=== PATIENT | male | born 1990 | race Caucasian/White ===

== ENCOUNTER 2017-06-01 01:19 | Emergency (ER) | payer OTHER ==
[2017-06-01 01:27] VITALS: BP 139/55
--- NOTE | 2017-06-01 01:39 | ER Document Report ---
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 He is complaining of abrasions over the second through fifth PIP joints and tenderness and swelling distal fourth and fifth metacarpals.No previous fx. [place]. 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 Associated Symptoms: None Exacerbated by: Movement Relieved by: Denies - ROS ROS below otherwise negative: Yes Systems Reviewed and Negative: Yes All other systems reviewed and negative - MUSCULOSKELETAL Musculoskeletal: REPORTS: Extremity pain - R hand Past Medical History - General Information source: Patient - Social History Smoking Status: Never Smoker Frequency of alcohol use: None Drug Abuse: None Occupation: [employer] [place] Lives with: Alone Family History: Reviewed & Not Pertinent Patient has suicidal ideation: No Patient has homicidal ideation: No - Medical History Medical History: Negative Renal/ Medical History: Denies: Hx Peritoneal Dialysis Surgical Hx: Negative Vertical Provider Document - CONSTITUTIONAL Agree With Documented VS: Yes Exam Limitations: No Limitations - INFECTION CONTROL TRAVEL OUTSIDE OF THE [place] IN LAST 30 DAYS: No - HEENT HEENT: Normocephalic - NECK Neck: Supple - MUSCULOSKELETAL/EXTREMETIES Musculoskeletal/Extremeties: MAEW, FROM, Tender - distal 4/5th MT, proximal 4- 5th phalanx, all mild tender. no rotational deviation., Edema, Eccymosis - NEURO Level of Consciousness: Awake, Alert Motor/Sensory: No Motor Deficit, No Sensory Deficit - DERM Integumentary: Warm, Dry Course - Re-evaluation Re-evalutation: 06/01/17 01:48 prelim xray is negative. pt wants to wait for the final report. 06/01/17 02:01 X-ray negative per rad. We will give patient bacitracin and Band-Aids when he gets home he can wash it and bandage it. - Vital Signs Vital signs: Temp Pulse Resp BP Pulse Ox 98.3 F 73 16 139/55 H 100 06/01/17 01:25 06/01/17 01:25 06/01/17 01:25 06/01/17 01:25 04/16/18 01:25 Discharge - Discharge Clinical Impression: abrasions right fingers PIP joints Contusion of right hand Qualifiers: Encounter type: initial encounter Qualified Code(s): S60.221A - Contusion of right hand, initial encounter Condition: Good Disposition: HOME, SELF-CARE Instructions: Antibiotic Ointment Protection ([facility]), Contusion ([facility]), Abrasions ([facility]) Additional Instructions: Keep abrasions clean Bacitracin Follow-up iat your sick call to er any concerns
--- NOTE | 2017-06-01 01:54 | RADIOLOGY REPORT (SQ) ---
EXAM DESCRIPTION: HAND RIGHT 3 VIEWS CLINICAL HISTORY: 27 years Male, pain s/p injury COMPARISON: None. NUMBER OF VIEWS/TECHNIQUE: 3 Findings: Bones, joints, and soft tissues of the HAND RIGHT 3 VIEWS appear intact. IMPRESSION: No acute findings.
== END 2017-06-01 02:09 | disposition home or self-care (01) ==
LOC: ER 01:19
DX: S60.221A Contusion of right hand, initial encounter (principal); S60.416A Abrasion of right little finger, initial encounter; S60.414A Abrasion of right ring finger, initial encounter; W01.0XXA Fall on same level from slipping, tripping and stumbling without subsequent striking against object, initial encounter
CPT/HCPCS: 99283